=== PATIENT | female | born 1970 | race American Indian/Alaskan Native ===

== ENCOUNTER 2017-11-13 11:15 | Emergency (ER) | payer OTHER ==
--- NOTE | 2017-11-13 15:06 | Emergency Department Report ---
Blank Doc - Documentation Documentation: Patient presents with complaints of constipation. Patient reports that she is having small bowel movements. Reports surgery on September 28 hidradenitis. Denies vomiting denies fever. Reports symptoms feel like past episodes of constipation. Reports that she was evaluated at [place] where she received mineral enema which did help. Plan patient requesting x-ray evaluation for constipation. If x-ray shows no acute abnormality, plan discharge with soapsuds enema and GI follow-up.
--- NOTE | 2017-11-13 15:29 | XRay Report ---
ABDOMINAL SERIES: History: Pain. Erect chest film shows no acute or significant changes involving the heart or lung ryder. There is no evidence of free air beneath the diaphragms. The gas pattern within the abdomen is unremarkable. There is no evidence of bowel dilatation, significant air-fluid levels, or masses. Organ shadows are unremarkable. IMPRESSION: Abdominal series within normal limits.
--- NOTE | 2017-11-13 15:52 | Emergency Department Report ---
HPI - General Chief Complaint: Abdominal Pain Time Seen by Provider: 11/13/17 15:04 - HPI HPI: Patient is a 47-year-old female presents to ED complaining of pain with bowel movement. Patient states that she's noticed her stools are bit hard and hurts with bowel movement. Patient denies blood in her stool. Patient states that if her stools are soft capable of the as uncomfortable for her to use bowel movements. Patient denies any history of hemorrhoids. She denies abdominal pain, fever, chills, nausea or vomiting. ED Past Medical Hx - Medications Home Medications: Home Medications Medication Instructions Recorded Confirmed Last Taken Type Docusate Sodium [Colace] 100 mg PO BID PRN #40 capsule 11/13/17 Unknown Rx Magnesium Citrate [Citrate of 300 ml PO BID #1 solution 11/13/17 Unknown Rx Magnesia] ED Review of Systems ROS: Stated complaint: CONSTIPATION Other details as noted in HPI Constitutional: denies: chills, fever Eyes: denies: eye pain, eye discharge, vision change ENT: denies: ear pain, throat pain Respiratory: denies: cough, shortness of breath, wheezing Cardiovascular: denies: chest pain, palpitations Endocrine: no symptoms reported Gastrointestinal: constipation. denies: abdominal pain, nausea, diarrhea Genitourinary: denies: urgency, dysuria, discharge Musculoskeletal: denies: back pain, joint swelling, arthralgia Skin: denies: rash, lesions Neurological: denies: headache, weakness, paresthesias Psychiatric: denies: anxiety, depression Hematological/Lymphatic: denies: easy bleeding, easy bruising Physical Exam - Physical Exam Vital Signs: Vital Signs 11/13/17 11:19 Temperature 98.7 F Pulse Rate 102 H Respiratory 18 Rate Blood Pressure 121/80 O2 Sat by Pulse 98 Oximetry Physical Exam: GENERAL: Alert and oriented x3, no apparent distress, Normal Gait, atraumatic. HEAD: Head is normocephalic and a-traumatic. LUNGS: Symetrical with respiration, No wheezing, no rales or crackles, CTAB. HEART: S1, S2 present, regular rate and rhythm without murmur, no rubs, no gallops. Non tender to palpation ABDOMEN: No organomegaly was noted,Positive bowel sounds, soft, and non- distended. . Nontender to palpation on all Quadrants, NO CVA tenderness. BACK: Full range of motion, no spinal tenderness, nontender to palpation. . SKIN: Warm and dry, No lesions, No ulceration or induration present. ED Course Vital Signs 11/13/17 11:19 Temperature 98.7 F Pulse Rate 102 H Respiratory 18 Rate Blood Pressure 121/80 O2 Sat by Pulse 98 Oximetry ED Medical Decision Making - Radiology Data Radiology results: report reviewed, image reviewed Ordering Physician: DANETTE MCKEON MD Date of Service: 11/13/17 Procedure(s): XR abd series w cxr 1V Accession Number(s): [id number] cc: DANETTE MCKEON MD Fluoro Time In Minutes: ABDOMINAL SERIES: History: Pain. Erect chest film shows no acute or significant changes involving the heart or lung ryder. There is no evidence of free air beneath the diaphragms. The gas pattern within the abdomen is unremarkable. There is no evidence of bowel dilatation, significant air-fluid levels, or masses. Organ shadows are unremarkable. IMPRESSION: Abdominal series within normal limits. Transcribed By: TTR Dictated By: MARYA FIGUEROA JR, MD Electronically Authenticated By: MARYA FIGUEROA JR, MD Signed Date/Time: 11/13/17 1520 - Medical Decision Making 47-year-old female presents for minor constipation. ED course: X-ray shows no abnormal findings. 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 Discussed with palpation to use Colace twice a day to help with stool softening. Patient denies history of hemorrhoids. Vital signs are normal patient is in no acute distress. Critical care attestation.: If time is entered above; I have spent that time in minutes in the direct care of this critically ill patient, excluding procedure time. ED Disposition Clinical Impression: Constipation Qualifiers: Constipation type: unspecified constipation type Qualified Code(s): K59.00 - Constipation, unspecified Disposition: - TO HOME OR SELFCARE Is pt being admited?: No Does the pt Need Aspirin: No Condition: Stable Instructions: Constipation (ED), High Fiber Diet (ED) Additional Instructions: Make sure to follow up with the primary care physician as discussed. Take all your medications as you've been prescribed. If you have any worsening symptoms or develop new symptoms please return to ED immediately. Prescriptions: Docusate Sodium [Colace] 100 mg PO BID PRN #40 capsule PRN Reason: Pain Magnesium Citrate [Citrate of Magnesia] 300 ml PO BID #1 solution Referrals: PRIMARY CARE, [Primary Care Provider] - 3-5 Days [facility] [Provider Group] - 3-5 Days [facility] [Provider Group] - 3-5 Days Forms: Work/School Release Form(ED) Time of Disposition: 15:58
[2017-11-13 16:27] VITALS: BP 148/74
== END 2017-11-13 16:26 | disposition home or self-care (01) ==
LOC: ED 11:15
DX: K59.00 Constipation, unspecified (principal)
CPT/HCPCS: 74022; 99283